=== PATIENT | female | born 1965 | race Hispanic/Latino ===

== ENCOUNTER 2018-08-20 16:00 | Outpatient (RCR) | payer OTHER ==
[~2018-08-20 16:00] MED LIST: FLAGYL500 MG OR; FLAGYL500 MG PO; MEGACE40 MG PO; MULTI VITAMN PO; NAPROSYN250 MG PO; NAPROSYN375 MG PO; NECON 1/35-281 TAB OR; NECON1 TA1 OR
== END 2018-08-20 17:00 | disposition home or self-care (01) | DRG 950 ==
LOC: PT 16:00
PROVIDERS: ATTEND Physician Assistant Medical
DX: S59.902D Unspecified injury of left elbow, subsequent encounter (principal)

== ENCOUNTER 2020-10-29 07:04 | Day surgery (SDC) | payer BC ==
--- NOTE | 2020-09-24 12:28 | NUR ---
07/08/20 PATIENT WAS SCHEDULED FOR [facility] AND CALLED ON 07/08/20 TO CANCEL HER PROCEDURE. SHE STATED SHE WOULD CALL TO RESCHEDULE. 08/05/20 PATIENT IS OUT OF STATE 09/24/20 - SPOKE WITH PATIENT'S DAUGHTER AND SHE STATED HER MOTHER JUST CAME BACK. SHE STATED SHE WOULD HAVE HER CALL THE OFFICE.
[~2020-10-29 07:04] MED LIST changes: +ALPRAZOLAM0.5 MG PO; +ASPIRIN81 MG PO; +ATORVASTATIN CA20 MG PO; +BIOTIN5000 MC2 PO; +CLONAZEPAM1 MG PO; +ESTRACE VAG0.1 MG/GM VA; +MOTRIN200 MG PO; +OMEPRAZOLE DR40 MG PO; +PREMARIN0.625 MG/G VA; +[UNRECOGNIZED DRUG - OTHER] PO
[2020-10-29] MEDS ORDERED: PERCOCET 5/325M1 TAB PO (09:44)
[2020-10-29 10:01] VITALS: BP 120/58
== END 2020-10-29 10:15 | disposition home or self-care (01) | DRG 419 ==
LOC: ORM 07:04
PROVIDERS: ATTEND Surgery
PROC: 0FT44ZZ Resection of Gallbladder, Percutaneous Endoscopic Approach (ICD-10-PCS; principal; 2020-10-29)
DX: K80.10 Calculus of gallbladder with chronic cholecystitis without obstruction (principal); Z20.828 Contact with and (suspected) exposure to other viral communicable diseases
CPT/HCPCS: J0131; J1100; J1610; Q9967

== ENCOUNTER 2024-07-04 06:33 | Day surgery (SDC) | payer OTHER ==
[~2024-07-04] VITALS: Ht 162.6 cm; Wt 70.3 kg
[~2024-07-04 06:33] MED LIST changes: +ATORVASTATIN CA40 MG PO; +PERCOCET 5/325M1 TAB PO; +QUETIAPINE FUM100 MG PO
[2024-07-04] MEDS ORDERED: LACTATED RINGER'S 1,000 ML IV ONE (06:52)
[2024-07-04] MEDS ORDERED: FAMOTIDINE 10MG/ML 2ML SDV IV ONE (06:52)
[2024-07-04 09:12] VITALS: BP 112/64
[2024-07-04] MEDS ORDERED: STERILE WATER FOR IRRIGATION 1,000 ML BTL IR ONE (14:42)
[2024-07-04] MEDS ORDERED: GLYCOPYRROLATE 0.2 MG/ML IV ONE (15:58)
[2024-07-04] MEDS ORDERED: LIDOCAINE HCL 2% 2ML SDV IV ONE (15:58)
[2024-07-04] MEDS ORDERED: PROPOFOL 200 MG/20 ML VIAL IV ONE (15:58)
== END 2024-07-04 09:39 | disposition home or self-care (01) | DRG 951 ==
LOC: ENDO 06:33
PROVIDERS: ATTEND Surgery
PROC: 0DBH8ZX Excision of Cecum, Via Natural or Artificial Opening Endoscopic, Diagnostic (ICD-10-PCS; principal; 2024-07-04)
DX: Z12.11 Encounter for screening for malignant neoplasm of colon (principal); D12.0 Benign neoplasm of cecum